=== PATIENT | male | born 1965 | race African-American/Black ===

== ENCOUNTER 2022-03-12 17:41 | Emergency (ER) | payer MEDICAID ==
[~2022-03-12] VITALS: Ht 175.3 cm; Wt 67.0 kg
[2022-03-12 17:46] VITALS: BP 151/89
== END 2022-03-12 22:23 | disposition left against medical advice (07) ==
LOC: ER 17:41
DX: Z53.21 Procedure and treatment not carried out due to patient leaving prior to being seen by health care provider (principal)